=== PATIENT | male | born 1955 | race American Indian/Alaskan Native ===

== ENCOUNTER 2022-02-26 14:28 | Emergency (ER) | payer OTHER ==
--- NOTE | 2022-02-26 15:13 | XRay Report ---
CHEST 2 VIEWS INDICATION: Chest Pain. COMPARISON: none FINDINGS: Support devices: None. Heart: Within normal limits. Lungs/pleura: No acute air space or interstitial disease. No pleural abnormality or pneumothorax. Additional findings: None. IMPRESSION: Normal chest x-ray Signer Name: Arash Shen Jr, MD Signed: 02/26/2022 3:08 PM Workstation Name: [id number]
[2022-02-26 15:20] VITALS: BP 164/95
[2022-02-26] MEDS ORDERED: ASPIRIN 81 MG TAB CHEW PO ONE (15:44)
--- NOTE | 2022-02-26 15:56 | Emergency Department Report ---
HPI - General Chief Complaint: Chest Pain Time Seen by Provider: 02/26/22 15:53 - HPI HPI: 40 minutes prior to arrival the patient began experiencing presternal heaviness that was nonradiating and moderate. He did not experience any shortness of breath nausea diaphoresis or any other associated symptoms. He did not take any medicines for this. He has a history of high blood pressure and is chest discomfort started after he learned that his blood pressure was a little higher than usual. Over the last week he has been experiencing slightly higher p ressures than usual even though he is compliant with his medication. The pain is currently absent and has completely gone away. ED Past Medical Hx - Past Medical History Previous Medical History?: No Hx Hypertension: Yes Hx Asthma: Yes - Surgical History Past Surgical History?: No - Family History Family history: no significant - Social History Smoking Status: Never Smoker Substance Use Type: None, Alcohol - Medications Home Medications: Home Medications Medication Instructions Recorded Confirmed Last Taken Type Aspirin [Aspirin BABY CHEW TAB] 81 mg PO QDAY 30 Days #30 tab.chew 02/26/22 Unknown Rx ED Review of Systems ROS: Stated complaint: CHEST PRESSURE Other details as noted in HPI Comment: All other systems reviewed and negative Physical Exam - Physical Exam Vital Signs: Vital Signs 02/26/22 15:15 Temperature 98.5 F Pulse Rate 75 Respiratory 18 Rate Blood Pressure 164/95 [Right] O2 Sat by Pulse 98 Oximetry Physical Exam: Physical Exam: Constitutional: AAOX3. No acute distress. No diaphoresis. HENT: Normocephalic. Pupils equal and reactive. No throat edema or erythema. Neck: No neck rigidity or tenderness. Cardiovascular: Heart sounds: No murmur. Normal rate and regular rhythm. Pulses: Intact distal pulses. Lungs: No wheezing or rales. Chest wall: No tenderness. Abdominal: No distension. No mass/pulsatile mass. No abdominal tenderness, guarding nor rebound. Musculoskeletal: Normal range of motion. No edema, No calf TTP. Skin: Warm and dry. Neurological: Alert and oriented to person, place, and time. Psychiatric: Mood and affect normal. Normal cognition and memory. Normal judgement. ED Course Vital Signs 02/26/22 15:15 Temperature 98.5 F Pulse Rate 75 Respiratory 18 Rate Blood Pressure 164/95 [Right] O2 Sat by Pulse 98 Oximetry - Reevaluation(s) Reevaluation #1: 02/26/22 17:16 EKG done and interpreted at 1528 shows a rate of 74, normal. The rhythm is sinus rhythm, normal. There is a possible anteroseptal infarct old. Reevaluation #2: 02/26/22 17:18 The patient did not have any chest pain relatively well nourished department. His chest x-ray cardiac enzymes and blood work were within normal limits. I offered the patient admission and I also offered the patient a repeat troponin but he elected to go home because he feels well he does not think he is got ACS. I did a heart score on the patient which was 3. The patient elected to go home AGAINST MEDICAL ADVICE verbalizing the risk of permanent disability or any other unforeseen consequences ED Medical Decision Making - Lab Data Result diagrams: 02/26/22 15:48 02/26/22 15:48 Critical care attestation.: If time is entered above; I have spent that time in minutes in the direct care of this critically ill patient, excluding procedure time. ED Disposition Clinical Impression: Chest pain Disposition: 07 LEFT AGAINST MEDICAL ADVICE Is pt being admited?: No Does the pt Need Aspirin: No Condition: Stable Instructions: Nonspecific Chest Pain, Adult Prescriptions: Aspirin [Aspirin BABY CHEW TAB] 81 mg PO QDAY 30 Days #30 tab.chew Time of Disposition: 17:20 Print Language: SETSWANA
[2022-02-26 16:23] LABS: Basophils # (Auto) 0.1 K/mm3 (0.0-0.1); Basophils % (Auto) 0.8 % (0.0-1.8); Eosinophils # (Auto) 0.3 K/mm3 (0.0-0.4); Eosinophils % (Auto) 3.3 % (0.0-4.3); Hematocrit 47.6 % (35.5-45.6); Hemoglobin 15.1 gm/dl (11.8-15.2); Lymphocytes # (Auto) 3.1 K/mm3 (1.2-5.4); Mean Corpuscular HGB Conc 32 % (32-34); Mean Corpuscular Volume 83 fl (84-94); Monocytes # (Auto) 0.6 K/mm3 (0.0-0.8); Platelet Count 188 K/mm3 (140-440); Red Blood Count 5.74 M/mm3 (3.65-5.03)
[2022-02-26 16:44] LABS: Alanine Aminotransferase 22 units/L (7-56); Albumin 4.4 g/dL (3.9-5); BUN/Creatinine Ratio 20; Blood Urea Nitrogen 18 mg/dL (9-20); Hemolysis Index 10
--- NOTE | 2022-02-28 20:03 | Electrocardiograph Report ---
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
== END 2022-02-26 17:44 | disposition left against medical advice (07) ==
LOC: ED 14:28
DX: R07.9 Chest pain, unspecified (principal); I10 Essential (primary) hypertension; J45.909 Unspecified asthma, uncomplicated
CPT/HCPCS: 36415; 71046; 80053; 84484; 85025; 93005; 99284